=== PATIENT | female | born 1965 | race Caucasian/White ===

== ENCOUNTER → 2016-06-04 | Outpatient (REF) | payer OTHER ==
[2016-06-04 18:08] LABS: BASO # 0.1 K/mm3 (0.0-0.2); BASO % 0.8 % (0.0-1.0); EOS # 0.4 K/mm3 (0.0-0.50); EOS % 5.2 % (0.0-3.0); LARGE UNSTAINED CELL # 0.1 K/mm3 (0.0-0.4); LARGE UNSTAINED CELL % 1.6 % (0.0-4.0); LYMPH % 28.6 % (24.0-44.0); MEAN CORPUSCULAR HEMOGLOBIN 28.3 pg (27.0-33.0); MEAN CORPUSCULAR HGB CONC 32.1 g/dl (32.0-36.5); MEAN CORPUSCULAR VOLUME 88.2 fl (80.0-96.0); MONO # 0.3 K/mm3 (0.0-0.8); MONO % 4.5 % (0.0-5.0); NEUTROPHILS # 4.2 K/mm3 (1.8-7.7); NEUTROPHILS % 59.4 % (36.0-66.0); PLATELET COUNT, AUTOMATED 342 k/mm3 (150-450); RED CELL DISTRIBUTION WIDTH 12.7 % (11.5-14.5); WHITE BLOOD COUNT 7.1 K/mm3 (4.0-10.0)
[2016-06-04 18:09] LABS: VITAMIN B12 LEVEL 365 PG/ML
[2016-06-04 18:13] LABS: ALBUMIN 4.2 GM/DL (3.2-5.2); ALBUMIN/GLOBULIN RATIO 1.14 (1.00-1.93); ALKALINE PHOSPHATASE 83 U/L (45-117); ALT/SGPT 27 U/L (12-78); ANION GAP 9 MEQ/L (8-16); AST/SGOT 48 U/L (15-37); BLOOD UREA NITROGEN 9 MG/DL (7-18); CARBON DIOXIDE LEVEL 28 MEQ/L (21-32); CHLORIDE LEVEL 105 MEQ/L (98-107); CHOLESTEROL LEVEL 182 MG/DL (<200); CREATININE FOR GFR 0.74 MG/DL (0.55-1.02); FERRITIN 88 NG/ML (8-252); FREE T4 0.88 NG/DL (0.76-1.46); GLOMERULAR FILTRATION RATE > 60.0 (>51); GLUCOSE, FASTING 78 MG/DL (70-105); POTASSIUM SERUM 4.1 MEQ/L (3.5-5.1); SODIUM LEVEL 142 MEQ/L (136-145); TOTAL PROTEIN 7.9 GM/DL (6.4-8.2); TRIGLYCERIDES LEVEL 170 MG/DL (<150)
== END ==
LOC: M SFHCPLAZ 14:25
PROVIDERS: ATTEND Nurse Practitioner Family
DX: R05 Cough (principal); R53.83 Other fatigue; E03.9 Hypothyroidism, unspecified; E66.01 Morbid (severe) obesity due to excess calories
CPT/HCPCS: 36415; 80053; 80061; 82306; 82607; 82728; 82746; 84439; 84443; 85025; G0463

== ENCOUNTER → 2016-06-29 | Outpatient (CLI) | payer OTHER ==
--- NOTE | 2016-06-29 08:51 | REP ---
MAXILLOFACIAL CT WITHOUT CONTRAST: HISTORY: Osteosclerosis. Minimal mucosal thickening is present in the ethmoid, maxillary, left frontal and right sphenoid sinuses. A retention cyst or polyp is present in the right maxillary sinus. The remaining sinuses are clear. The ostiomeatal units are patent. The middle and inferior nasal turbinates are partially paradoxical. There is allie bullosa of the middle nasal turbinates. There is minimal deviation of the nasal septum to the right. A spur is present arising from the right side of the nasal septum. The cribriform plate, medial freitas of the orbits and optic canals are intact. There is aeration of the right anterior clinoid process. The carotid canals form a segment of the posterolateral freitas of the sphenoid sinus. The sphenoid sinus septum inserts into the left internal carotid canal wall. There is flattening of the mandibular condyles with associated sclerosis. Calcified densities are present adjacent to the left mandibular condyle. IMPRESSION: 1. Sinus mucosal thickening as described above. 2. 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 Signed by Theodore Mcintosh MD 06/29/2016 09:09 A
== END ==
LOC: M RAD 08:11
PROVIDERS: ATTEND Nurse Practitioner Family
DX: M26.69 Other specified disorders of temporomandibular joint (principal)

== ENCOUNTER 2016-07-22 14:11 | Emergency (ER) | payer OTHER ==
[~2016-07-22] VITALS: Ht 160 cm; Wt 107.0 kg
[2016-07-22] MEDS ORDERED: VITAMIN PO (14:30)
[2016-07-22] MEDS: ASPIRIN 81 MG CHEW TABLET PO ONE ×2 (14:30→14:43)
[2016-07-22] MEDS ORDERED: LEVO100T5 PO (14:30)
[2016-07-22] MEDS ORDERED: ZYRT10CA PO (14:30)
[2016-07-22] MEDS ORDERED: DOXY100T (14:30)
[2016-07-22] MEDS ORDERED: ASPI81TA85 PO (14:30)
[2016-07-22 14:41] LABS: BASO # 0.1 K/mm3 (0.0-0.2); BASO % 0.7 % (0.0-1.0); EOS # 0.3 K/mm3 (0.0-0.50); EOS % 3.5 % (0.0-3.0); LARGE UNSTAINED CELL # 0.1 K/mm3 (0.0-0.4); LARGE UNSTAINED CELL % 1.4 % (0.0-4.0); LYMPH # 2.4 K/mm3 (1.5-4.5); LYMPH % 30.2 % (24.0-44.0); MEAN CORPUSCULAR HEMOGLOBIN 28.3 pg (27.0-33.0); MEAN CORPUSCULAR HGB CONC 33.2 g/dl (32.0-36.5); MEAN CORPUSCULAR VOLUME 85.1 fl (80.0-96.0); MONO # 0.3 K/mm3 (0.0-0.8); MONO % 3.4 % (0.0-5.0); NEUTROPHILS # 4.7 K/mm3 (1.8-7.7); NEUTROPHILS % 60.7 % (36.0-66.0); PLATELET COUNT, AUTOMATED 345 k/mm3 (150-450); RED CELL DISTRIBUTION WIDTH 12.7 % (11.5-14.5); WHITE BLOOD COUNT 7.8 K/mm3 (4.0-10.0)
[2016-07-22 14:52] LABS: INR 0.94
[2016-07-22 15:12] LABS: ANION GAP 9 MEQ/L (8-16); BLOOD UREA NITROGEN 11 MG/DL (7-18); CALCIUM LEVEL 8.6 MG/DL (8.5-10.1); CARBON DIOXIDE LEVEL 27 MEQ/L (21-32); CHLORIDE LEVEL 105 MEQ/L (98-107); CREATININE FOR GFR 0.76 MG/DL (0.55-1.02); GLOMERULAR FILTRATION RATE > 60.0 (>51); GLUCOSE, FASTING 99 MG/DL (70-105); POTASSIUM SERUM 3.6 MEQ/L (3.5-5.1); SODIUM LEVEL 141 MEQ/L (136-145)
--- NOTE | 2016-07-22 15:12 | REP ---
PORTABLE CHEST X-RAY: Single view. HISTORY: Chest pain. COMPARISON STUDY: May 06, 2016. FINDINGS: A 2.4 cm oval-shaped, well-circumscribed noncalcified lung mass is seen in the right inferior perihilar region. Previously, this was reported as measuring 2.9 cm. No new nodule is seen. Pleural angles are sharp. Lung naylor are otherwise well inflated. Heart size is normal. Pulmonary vasculature is not increased. IMPRESSION: 2.4 cm right inferior perihilar lung mass. This appears radiographically smaller than it did on May 06, 2016. Uncertain etiology. Otherwise no active disease. No remote comparison radiographs are available. Consider chest CT. Signed by Andriy Cisneros MD 07/22/2016 06:19 P
[2016-07-22] MEDS ORDERED: ISOVUE-370 76% 100ML VIAL (Q9967) As Ordered ONE (15:16)
--- NOTE | 2016-07-22 15:58 | REP ---
CT pulmonary angiogram: With IV contrast. History: Question pulmonary embolism. Comparison studies: Comparison chest x-rays are from today as well as 05/06/2016. Contrast dose: 75 mL of Isovue [address] technique: Helical scanning is acquired and overlapping 1.5 mm and contiguous 3 mm axial images are reformatted. In addition, a 3-D work station is deployed to generate thick slab maximum intensity projection images in sagittal and coronal imaging projections. CT pulmonary angiographic findings: There is good opacification of the pulmonary arterial tree. There is no CT evidence of pulmonary embolism. Thoracic aorta is unremarkable on contrast enhanced CT. There is moderate diffuse fatty infiltration of the liver. There are clips in gallbladder fossa. No adrenal lesion is seen. The visualized upper abdominal structures are otherwise unremarkable. There is no evidence of hilar or mediastinal mass or adenopathy. A few normal-sized right hilar lymph nodes are seen. The study confirms the presence of a right lower lobe lung mass. This measures 2.5 x 2.0 x 1.9 cm. The lesion has a somewhat laminated texture. Maximal intensity projection reconstruction images suggest the possibility of a eccentric calcification but this is not confirmed on axial images. It is fairly well circumscribed. Its contour has a notch posteriorly. There are no adjacent draining veins or feeding arteries. No other pulmonary nodule is seen. No infiltrate or atelectasis is noted. No bony destructive lesion is appreciated. Impression: 1. No CT evidence of pulmonary embolus. 2. Moderate fatty infiltration of the liver. 3. 2.5 cm right lower lobe lung mass. Granuloma versus primary lung malignancy. If prior imaging studies exist these should be retrieved and compared. Failing this consideration could be given to PET/CT scanning or histologic sampling. Consider pulmonary medicine evaluation. Signed by Andriy Cisneros MD 07/22/2016 06:20 P
--- NOTE | 2016-07-22 17:35 | ECGEPIP ---
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
[2016-07-22 18:09] VITALS: BP 153/79
== END 2016-07-22 18:12 | disposition home or self-care (01) ==
LOC: M ED 16:00
DX: R07.9 Chest pain, unspecified (principal); R91.8 Other nonspecific abnormal finding of lung field; E66.9 Obesity, unspecified; E03.9 Hypothyroidism, unspecified; I65.22 Occlusion and stenosis of left carotid artery; Z88.1 Allergy status to other antibiotic agents; Z80.1 Family history of malignant neoplasm of trachea, bronchus and lung
CPT/HCPCS: 36415; 71010; 71275; 80048; 82550; 82553; 83880; 85025; 85610; 93005; 93041; 94760; 99285; Q9967

== ENCOUNTER → 2016-07-31 | Outpatient (CLI) | payer OTHER ==
[~2016-07-31] MED LIST: ASPI81TA85 PO; DOXY100T; LEVO100T5 PO; VITA50003 PO; VITAMIN PO; ZYRT10CA PO
--- NOTE | 2016-08-03 17:26 | REPMRS ---
Patient History The patient states she had a clinical breast exam in Patient had first child at age 33. Family history of colorectal cancer in mother. Digital Woman Screen Mammo: July 31, 2016 - Exam #: [id number] Bilateral CC and MLO view(s) were taken. Technologist: Dayana Malik, Technologist FINDINGS: There are scattered fibroglandular densities. There has been no change in the appearance of the mammogram from the prior study on 02/06/10. There is a mild amount of residual fibroglandular tissue which is fairly symmetric. There is no interval development of dominant mass, architectural distortion, or clustered microcalcification suggestive of malignancy. There are scattered, small, benign calcifications of doubtful clinical significance. No significant changes when compared with prior studies. ASSESSMENT: BI-RADS/ACR category 2 mammogram. Benign finding(s). Recommendation Routine screening mammogram in 1 year (for women over age 40). This mammogram was interpreted with the aid of an FDA-approved computer-aided dectection system. A. Negative x-ray reports should not delay biopsy if a dominant or clinically suspicious mass is present. B. Four to eight percent of cancers are not identified by mammography. C. Adenosis and dense breast may obscure an underlying neoplasm. Electronically Signed By: Magan Rodriguez MD 08/03/16 [id number]
== END ==
LOC: M WHC 14:50
PROVIDERS: ATTEND Nurse Practitioner Women's Health
DX: Z12.31 Encounter for screening mammogram for malignant neoplasm of breast (principal)
CPT/HCPCS: G0202; G0463

== ENCOUNTER → 2016-07-31 | Outpatient (REF) | payer OTHER | LOC: M SFHCWAGY 15:58 | PROVIDERS: ATTEND Nurse Practitioner Women's Health | DX: Z12.4 Encounter for screening for malignant neoplasm of cervix (principal) ==

== ENCOUNTER → 2016-08-05 | Outpatient (REF) | payer OTHER ==
[2016-08-05 13:35] LABS: FREE T4 1.16 NG/DL (0.76-1.46)
== END ==
LOC: M SFHCPLAZ 11:05
PROVIDERS: ATTEND Nurse Practitioner Family
DX: E03.9 Hypothyroidism, unspecified (principal)

== ENCOUNTER → 2016-08-05 | Outpatient (REF) | payer OTHER | LOC: M LABDRAWP 14:04 | PROVIDERS: ATTEND Internal Medicine Pulmonary Disease | DX: E03.9 Hypothyroidism, unspecified (principal); R91.8 Other nonspecific abnormal finding of lung field ==

== ENCOUNTER → 2016-08-10 | Day surgery (SDC) | payer OTHER ==
[~2016-08-10] VITALS: Ht 160 cm; Wt 107.0 kg
[~2016-08-10] MED LIST changes: +ACETAMINOPHEN TAB 650MG DOSE (2X325MG) PO ONE; +GLYCOPYRROLATE INJ 0.2 MG/ML 2 ML VIAL As Ordered ONE; +LIDOCAINE 2% INJ 100 MG/5 ML SDV (FOR ANES.) As Ordered ONE; +LIDOCAINE VISCOUS 2% SOLN 15ML UDC As Ordered ONE; +LR 1,000 ML IV SCH; +METOCLOPRAMIDE INJ 10MG/2ML VIAL (J2765) IV PRN; +MIDAZOLAM INJ 2 MG/2 ML VIAL (J2250) As Ordered ONE; +NEOSTIGMINE 1MG/ML 5 ML SYRINGE (J2710) As Ordered ONE; +ONDANSETRON 4MG/2ML VIAL (J2405) As Ordered ONE; +ONDANSETRON 4MG/2ML VIAL (J2405) IV PRN; +PERCOCET 5MG/325MG TAB PO PRN; +PROPOFOL 200 MG/20 ML VIAL As Ordered ONE; +ROCURONIUM BROMIDE 50 MG/5 ML VIAL As Ordered ONE; +fentaNYL 100 MCG/2 ML INJECTION (J3010) As Ordered ONE; +fentaNYL 100 MCG/2 ML INJECTION (J3010) IV PRN
--- NOTE | 2016-08-10 10:25 | RO ---
DATE OF PROCEDURE: 08/10/2016 PREOPERATIVE DIAGNOSES: Right lower lobe lesion. Abnormal chest CT POSTOPERATIVE DIAGNOSES: Right lower lobe lesion. Abnormal chest CT. PROCEDURE Bronchoscopy with electromagnetic navigation fine-needle aspiration. SURGEON: Dr. Benigno Trejo. QUALITY ASSURANCE QA LAB TECHNICIAN: None ANESTHESIA: General. FINDINGS: Normal airways. ESTIMATED BLOOD LOSS: 5 to 10 mL. COMPARISON: No observed complications. FINDINGS: Normal airways. SPECIMENS OBTAINED: 1. Fine-needle aspiration (FNA) right lower lobe. 2. Forceps biopsies right lower lobe. 3. Micro brush right lower lobe. 4. Bronchoalveolar lavage (BAL) right lower lobe. DESCRIPTION OF PROCEDURE: After informed consent was reviewed with the patient in the preoperative area, she was brought back to OR #8. Time-out was performed with two patient identifiers identifying correct site, correct procedure. The patient was intubated with general anesthesia with an 8.0 endotracheal tube. After adequate anesthesia, the case was handed over to mo. Again a time-out was performed with two patient identifiers identifying correct site, correct procedure. The 1T180 bronchoscope was then inserted into the endotracheal tube. Airways were then examined. Trachea was midline. Brenna was sharp. Right and left mainstem bronchus was normal. RV 1 through 10 was normal. LB 1 through 10 was normal except for some minimal bleeding from the scope. After a normal airway inspection the LG guide was placed. Automatic registration was performed without difficulty. I then navigated to the right lower lobe lesion in the lateral segment. This was easily navigated to. Position was confirmed with fluoroscopy. After confirmation of placement the lg guide was removed. Fine needle aspiration was performed times four, transbronchial biopsies times eight and a micro brush. This was followed by bronchoalveolar lavage. After all samples were taken, the sheath was removed. Hemostasis was assured prior to removing the bronchoscope. There were no observed complications. The patient is in recovery. Postprocedure chest x-ray is pending. [facility]
--- NOTE | 2016-08-10 11:00 | REP ---
PORTABLE CHEST: AP portable view of the chest is performed and compared to a prior study of 07/22/2016. There is somewhat poor ventilation. There is no pneumothorax. Right lower lobe nodular opacity is again seen. There are bilateral discoid atelectatic changes. IMPRESSION: No pneumothorax. Right lower lobe nodular opacity. Signed by Chon Liao MD 08/10/2016 03:53 P
[2016-08-10 12:15] VITALS: BP 139/79
== END ==
LOC: M SDC 07:39
PROVIDERS: ATTEND Internal Medicine Pulmonary Disease
DX: R91.8 Other nonspecific abnormal finding of lung field (principal); R05 Cough; R06.83 Snoring; R91.1 Solitary pulmonary nodule; J32.9 Chronic sinusitis, unspecified; E03.9 Hypothyroidism, unspecified; M50.90 Cervical disc disorder, unspecified, unspecified cervical region; I34.9 Nonrheumatic mitral valve disorder, unspecified; D64.9 Anemia, unspecified; G47.9 Sleep disorder, unspecified; E66.9 Obesity, unspecified; Z86.14 Personal history of Methicillin resistant Staphylococcus aureus infection; Z80.1 Family history of malignant neoplasm of trachea, bronchus and lung; Z88.1 Allergy status to other antibiotic agents; Z79.899 Other long term (current) drug therapy
CPT/HCPCS: 31623; 31624; 31627; 31628; 31629; 71010; 76000; 87070; 87071; 87102; 87116; 87205; 87206; 88172; 88173; 88305; 88313; J2250; J2405; J2710; J3010

== ENCOUNTER → 2016-09-11 | Outpatient (CLI) | payer OTHER ==
[~2016-09-11] MED LIST changes: -ACETAMINOPHEN TAB 650MG DOSE (2X325MG) PO ONE; -GLYCOPYRROLATE INJ 0.2 MG/ML 2 ML VIAL As Ordered ONE; -LIDOCAINE 2% INJ 100 MG/5 ML SDV (FOR ANES.) As Ordered ONE; -LIDOCAINE VISCOUS 2% SOLN 15ML UDC As Ordered ONE; -LR 1,000 ML IV SCH; -METOCLOPRAMIDE INJ 10MG/2ML VIAL (J2765) IV PRN; -MIDAZOLAM INJ 2 MG/2 ML VIAL (J2250) As Ordered ONE; -NEOSTIGMINE 1MG/ML 5 ML SYRINGE (J2710) As Ordered ONE; -ONDANSETRON 4MG/2ML VIAL (J2405) As Ordered ONE; -ONDANSETRON 4MG/2ML VIAL (J2405) IV PRN; -PERCOCET 5MG/325MG TAB PO PRN; -PROPOFOL 200 MG/20 ML VIAL As Ordered ONE; -ROCURONIUM BROMIDE 50 MG/5 ML VIAL As Ordered ONE; -fentaNYL 100 MCG/2 ML INJECTION (J3010) As Ordered ONE; -fentaNYL 100 MCG/2 ML INJECTION (J3010) IV PRN
--- NOTE | 2016-09-12 09:29 | REP ---
MAXILLOFACIAL CT WITHOUT CONTRAST: HISTORY: Chronic maxillary sinusitis. COMPARISON: 06/29/2016. Moderate mucosal thickening is present in the ethmoid and maxillary sinuses. This has progressed compared to the previous study. Minimal mucosal thickening is present in the left sphenoid sinus. The remaining sinuses are clear. A retention cyst or polyp is present in the right maxillary sinus. Mucosal thickening involves the ostiomeatal units. The middle and inferior nasal turbinates are partially paradoxical. There is allie bullosa of the middle nasal turbinates. There is minimal deviation of the nasal septum to the right. A spur is present arising from the right side of the nasal septum. The cribriform plate, medial freitas of the orbits and optic canals are intact. There is aeration of the right anterior clinoid process. The carotid canals form a segment of the posterolateral freitas of the sphenoid sinus. The sphenoid sinus septum inserts into the left internal carotid canal wall. There is flattening of the mandibular condyles with associated sclerosis. Calcifications are present adjacent to the left mandibular condyle. IMPRESSION: 1. Sinus mucosal thickening as described above. The mucosal thickening has progressed compared to the previous study. 2. There is degenerative change in the temporal mandibular joints. Unreviewed
== END ==
LOC: M RAD 15:23
PROVIDERS: ATTEND Specialist
DX: J32.0 Chronic maxillary sinusitis (principal)

== ENCOUNTER → 2016-09-15 | Outpatient (REF) | payer OTHER ==
[2016-09-15 12:45] LABS: FREE T4 1.06 NG/DL (0.76-1.46)
== END ==
LOC: M SFHCPLAZ 10:00
PROVIDERS: ATTEND Nurse Practitioner Family
DX: E03.9 Hypothyroidism, unspecified (principal); E55.9 Vitamin D deficiency, unspecified

== ENCOUNTER → 2016-10-08 | Outpatient (CLI) | payer OTHER ==
[~2016-10-08] VITALS: Ht 160 cm; Wt 107.0 kg
[~2016-10-08] MED LIST changes: +CLAR10CA3 PO; +LIDOCAINE 2% INJ 100 MG/5 ML SDV (FOR ANES.) As Ordered ONE; +MULT1TAB10 PO; +NS 1,000 ML IV ONE; +PROPOFOL 200 MG/20 ML VIAL As Ordered ONE
--- NOTE | 2016-10-08 13:49 | ROOR ---
Patient Name: Shannan Welch Procedure Date: 10/08/2016 1:33 PM Date of : 1965 Age: 51 Room: [facility] Gender: Female Note Status: Finalized Procedure: Upper GI endoscopy Indications: Functional Dyspepsia, Dysphagia, "gastric polyp" Providers: Juan Luis SHARIF MD Referring MD: Loulou Larry NP Requesting Provider: Medicines: Monitored Anesthesia Care Complications: No immediate complications. Procedure: Pre-Anesthesia Assessment: - The heart rate, respiratory rate, oxygen saturations, blood pressure, adequacy of pulmonary ventilation, and response to care were monitored throughout the procedure. The Endoscope was introduced through the mouth, and advanced to the second part of duodenum. The upper GI endoscopy was accomplished without difficulty. The patient tolerated the procedure well. Findings: The examined esophagus was normal. The scope was withdrawn. Dilation was performed with a Smith dilator with no resistance at 54 Fr. The dilation site was examined and showed no change. This was biopsied with a cold forceps for evaluation of eosinophilic esophagitis. Small Hiatal Hernia. The entire examined stomach was normal. The examined duodenum was normal. Impression: - Normal esophagus. Dilated. Biopsied. - Small Hiatal Hernia. - Normal stomach.(I see no polypoid lesion described by patient--mucosa is normal) - Normal examined duodenum. Recommendation: - Observe patient's clinical course. - I anticipate no further need for intervention. Juan Luis Sharif MD Juan Luis SHARIF MD 10/08/2016 1:49:27 PM This report has been signed electronically. Number of Addenda: 0 Note Initiated On: 10/08/2016 1:33 PM Estimated Blood Loss: Estimated blood loss: none.
--- NOTE | 2016-10-08 14:01 | ROOR ---
Patient Name: Shannan Welch Procedure Date: 10/08/2016 1:34 PM Date of : 1965 Age: 51 Room: [facility] Gender: Female Note Status: Finalized Procedure: Colonoscopy Indications: Surveillance: Personal history of adenomatous polyps on last colonoscopy 3 years ago, Last colonoscopy: 2012 Providers: Juan Luis SHARIF MD Referring MD: Loulou Larry NP Requesting Provider: Medicines: Monitored Anesthesia Care Complications: No immediate complications. Procedure: Pre-Anesthesia Assessment: - The heart rate, respiratory rate, oxygen saturations, blood pressure, adequacy of pulmonary ventilation, and response to care were monitored throughout the procedure. The Colonoscope was introduced through the anus and advanced to the cecum, identified by appendiceal orifice and ileocecal valve. The colonoscopy was performed without difficulty. The patient tolerated the procedure well. The quality of the bowel preparation was good. Findings: The perianal and digital rectal examinations were normal. A 4 mm polyp was found in the sigmoid colon. The polyp was sessile. The polyp was removed with a cold snare. Resection and retrieval were complete. The exam was otherwise without abnormality on direct and retroflexion views. Impression: - One 4 mm polyp in the sigmoid colon, removed with a cold snare. Resected and retrieved. - The examination was otherwise normal on direct and retroflexion views. Recommendation: - Telephone endoscopist for pathology results in 2 weeks. - Repeat colonoscopy in 5 years for surveillance based on personal history of previous adenomatous polyps. Juan Luis Sharif MD Juan Luis SHARIF MD 10/08/2016 2:01:16 PM This report has been signed electronically. Number of Addenda: 0 Note Initiated On: 10/08/2016 1:34 PM Estimated Blood Loss: Estimated blood loss: none.
[2016-10-08 14:15] VITALS: BP 133/90
== END ==
LOC: M OPP 11:49
PROVIDERS: ATTEND Internal Medicine Gastroenterology
DX: Z12.11 Encounter for screening for malignant neoplasm of colon (principal); Z86.010 Personal history of colon polyps; Z80.0 Family history of malignant neoplasm of digestive organs; D12.5 Benign neoplasm of sigmoid colon; R13.10 Dysphagia, unspecified; K31.7 Polyp of stomach and duodenum; K30 Functional dyspepsia; K44.9 Diaphragmatic hernia without obstruction or gangrene; D64.9 Anemia, unspecified; E03.9 Hypothyroidism, unspecified; I34.1 Nonrheumatic mitral (valve) prolapse; Z79.899 Other long term (current) drug therapy; Z88.1 Allergy status to other antibiotic agents

== ENCOUNTER → 2016-10-13 | Outpatient (CLI) | payer OTHER ==
[~2016-10-13] MED LIST changes: +E-Z-GAS II EFFERVESCENT PACKET (SODIUM BICARB./CITRIC ACID/SIMETHICONE) As Ordered ONE; +E-Z-HD 98% w/w 340GM SUSP BTL As Ordered ONE; +E-Z-PAQUE 96% w/w SUSP 176GM BTL As Ordered ONE; -LIDOCAINE 2% INJ 100 MG/5 ML SDV (FOR ANES.) As Ordered ONE; -NS 1,000 ML IV ONE; -PROPOFOL 200 MG/20 ML VIAL As Ordered ONE
--- NOTE | 2016-10-13 17:33 | REP ---
Esophagram The procedure was performed under the direct supervision of Dr. Cisneros. The images were reviewed with Dr. Cisneros. A single view PA chest x-ray is submitted as a scientific specialist film. The superior mediastinal structures are midline. The heart size is within normal limits. There is a nodular opacity in the right lower lobe which is seen on a previous chest x-ray performed on 08/10/[address] of the chest performed on 07/22/2016. Liquid barium and gas producing granules were given in the erect position as well as liquid barium in the prone oblique positions in order to perform a double contrast esophagram examination. The oral and pharyngeal stages of deglutition are unremarkable. Esophageal transport is prompt and efficient and there is no esophagitis, stricture, mucosal ring or hiatal hernia. Gastroesophageal reflux is not demonstrated on this examination. Impression: There is a nodular opacity in the right lower lobe which is seen on a previous chest x-ray performed on 08/10/[address] of the chest performed on 07/22/2016. Otherwise unremarkable double contrast esophagram examination. 1 minute and 16 seconds of fluoro time was utilized for this procedure. Reviewed by SAMANTHA Koo 10/13/2016 03:19 PSigned by Andriy Cisneros MD 10/13/2016 05:24 P
== END ==
LOC: M RAD 09:52
PROVIDERS: ATTEND Physician Assistant Medical
DX: R91.8 Other nonspecific abnormal finding of lung field (principal)

== ENCOUNTER → 2017-01-14 | Outpatient (REF) | payer OTHER ==
[~2017-01-14] MED LIST changes: -E-Z-GAS II EFFERVESCENT PACKET (SODIUM BICARB./CITRIC ACID/SIMETHICONE) As Ordered ONE; -E-Z-HD 98% w/w 340GM SUSP BTL As Ordered ONE; -E-Z-PAQUE 96% w/w SUSP 176GM BTL As Ordered ONE; +VITA1CAP40 PO; -VITA50003 PO
[2017-01-14 14:05] LABS: FREE T4 0.92 NG/DL (0.76-1.46)
== END ==
LOC: M SFHCPLAZ 09:24
PROVIDERS: ATTEND Nurse Practitioner Family
DX: E03.9 Hypothyroidism, unspecified (principal); E55.9 Vitamin D deficiency, unspecified

== ENCOUNTER → 2017-02-11 | Outpatient (REF) | payer OTHER | LOC: M SFHCWAGY 13:39 | PROVIDERS: ATTEND Nurse Practitioner Women's Health | DX: N89.8 Other specified noninflammatory disorders of vagina (principal); N76.0 Acute vaginitis ==

== ENCOUNTER 2017-05-05 06:47 | Day surgery (SDC) | payer OTHER ==
[~2017-05-05] VITALS: Ht 160 cm; Wt 106.6 kg
[~2017-05-05 06:47] MED LIST changes: +ACYC400T PO
[2017-05-05] MEDS ORDERED: LR 1,000 ML IV ONE (07:00)
[2017-05-05] MEDS ORDERED: OXYMETAZOLINE NASAL SPRAY (AFRIN) As Ordered ONE (07:10)
[2017-05-05] MEDS ORDERED: EPINEPHrine INJ 1 MG/ML 1ML AMP As Ordered ONE (07:10)
[2017-05-05] MEDS ORDERED: LIDOCAINE W/EPINEPHRINE 1% 20ML VIAL As Ordered ONE ×2 (07:10→07:54)
[2017-05-05] MEDS ORDERED: LIDOCAINE 1% MDV 20ML VIAL SQ PRN (07:15)
[2017-05-05] MEDS ORDERED: ceFAZolin 2 GM/D5W 50 ML IV BAG (J0690 PER 500MG) As Ordered ONE (07:20)
[2017-05-05] MEDS ORDERED: DOXY-278 PO (07:30)
[2017-05-05] MEDS ORDERED: VICO5TAB16 PO ×2 (07:30→07:38)
[2017-05-05] MEDS: METHYLENE BLUE 0.5% (5MG/ML) 10 ML AMP (PROVAYBLUE)(Q9968 PER 1MG) As Ordered ONE ×2 (07:52→08:38)
[2017-05-05] MEDS ORDERED: ROCURONIUM BROMIDE 50 MG/5 ML VIAL As Ordered ONE (08:07)
[2017-05-05] MEDS ORDERED: dexameTHASONE 4 MG/ML 1ML VIAL (J1100) As Ordered ONE (08:07)
[2017-05-05] MEDS ORDERED: ONDANSETRON 4MG/2ML VIAL (J2405) As Ordered ONE (08:07)
[2017-05-05] MEDS ORDERED: PROPOFOL 200 MG/20 ML VIAL As Ordered ONE (08:07)
[2017-05-05] MEDS ORDERED: fentaNYL 250 MCG/5 ML INJECTION (J3010) As Ordered ONE (08:07)
[2017-05-05] MEDS ORDERED: MIDAZOLAM INJ 2 MG/2 ML VIAL (J2250) As Ordered ONE (08:07)
[2017-05-05] MEDS ORDERED: LIDOCAINE 2% INJ 100 MG/5 ML SDV (FOR ANES.) As Ordered ONE (08:07)
[2017-05-05] MEDS ORDERED: ePHEDrine SULFATE 25 MG/5 ML(5MG/ML) SYRINGE As Ordered ONE (08:13)
[2017-05-05] MEDS ORDERED: PHENYLephrine HCL 500 MCG/5 ML (100MCG/ML) SYRINGE (J2370) As Ordered ONE (08:13)
[2017-05-05] MEDS ORDERED: NEOSTIGMINE 10 MG/10 ML VIAL (J2710) As Ordered ONE (08:15)
[2017-05-05] MEDS ORDERED: GLYCOPYRROLATE INJ 0.2 MG/ML 2 ML VIAL As Ordered ONE (08:15)
[2017-05-05] MEDS ORDERED: EPINEPHrine 1MG/ML INJ 30ML MD-VIAL As Ordered ONE (08:38)
[2017-05-05] MEDS ORDERED: METOCLOPRAMIDE INJ 10MG/2ML VIAL (J2765) As Ordered ONE (09:27)
[2017-05-05] MEDS ORDERED: METOCLOPRAMIDE INJ 10MG/2ML VIAL (J2765) IV PRN (09:45)
[2017-05-05] MEDS ORDERED: LR 1,000 ML IV SCH (09:45)
[2017-05-05] MEDS ORDERED: IBUPROFEN 800 MG TAB PO PRN (09:45)
[2017-05-05] MEDS ORDERED: PERCOCET 5MG/325MG TAB PO PRN (09:45)
[2017-05-05] MEDS ORDERED: NORCO, ANEXSIA 5/325MG TABLET (HYDROcodone/ACETAMINOPHEN) PO PRN (09:45)
[2017-05-05] MEDS ORDERED: ONDANSETRON 4MG/2ML VIAL (J2405) IV PRN (09:45)
[2017-05-05] MEDS: fentaNYL 100 MCG/2 ML INJECTION (J3010) IV PRN ×2 (09:50→10:00)
[2017-05-05 12:48] VITALS: BP 179/95
--- NOTE | 2017-05-06 19:50 | RO ---
DATE OF PROCEDURE: 05/05/2017 PREPROCEDURE DIAGNOSES: 1. Chronic sinusitis. 2. Deviated septum. POSTPROCEDURE DIAGNOSIS: 1. Chronic sinusitis. 2. Deviated septum. OPERATIVE PROCEDURE: Bilateral total endoscopic ethmoidectomy and maxillary antrostomy. Septoplasty. SURGEON: Manior Wen MD FORCER MAKER: ANESTHESIA: INDICATION: A 51-year-old presents with a long history of nasal obstruction, recurrent sinusitis and pulmonary complications related to sinus disease. DESCRIPTION OF PROCEDURE: Satisfactory general endotracheal anesthesia administrated, pharyngeal pack placed, nose prepared for surgery by placing cotton-soaked pledgets with Afrin solution to the nasal cavity bilaterally, then 1% Xylocaine with 1:1000,00 epinephrine was used to inject the nasal septum. A Edward incision was made on the left side of the nose. A mucoperichondrial flap and envelope was created on the left side of the nasal septum and carried down to the junction of the bony and cartilaginous septum. This was then with an elevator, and an envelope was then created on the right side of the septum. A Ashwin scissors was used to make a cut high in the perpendicular plate in the midportion of the vomer, and a central segment of the bony septum was resected. Next, with the round knife on the Raulito elevator, a strip of cartilage was resected from the floor of the nose, mobilizing the quadrilateral cartilage and creating a swinging door. Then, a central segment of cartilaginous septum was resected, preserving a 1 cm dorsal and caudal strut. Double-action rongeur was used to take down deflected portions of the perpendicular plate, as well. Finally, the maxillary crest spur was taken down after elevating mucoperiosteum off both sides of it with a chisel. A segment of the resected cartilage was morselized and placed back into the septal envelope. The incision was closed using an interrupted #5-0 chromic suture. Then, a #4-0 plain suture was placed in a [id number] fashion through the two leaves of mucoperichondrium to appose them. The majority of the septal deflection was in the posterior vomer bone which created a large right angle spur posteriorly. This was resected by removing mucoperiosteum on each side of the vomer and then using the chisel below to separate it from the floor of the nose and scissors above to release it. The spur was removed in its entirety. The mucoperiosteum in this area was quite attenuated as a result of the sharp spur. Reconstruction of the septum was done by placing some segments of cartilage and resect it back in the septal envelope and then a #5-0 chromic suture used to close the incision and a #4-0 plain suture was placed in the usual fashion in a back and forth fashion through the septal envelope to oppose both sides. Next endoscopic sinus surgery was begun by placing cotton soaked pledgets with Afrin solution in the nasal cavity. The 0-degree telescope was used for most of the surgery. The microdebrider was the primary instrument. 1% Xylocaine with 1:100,000 epinephrine was injected into the left lateral nasal wall. First the uncinate process was taken down with the microdebrider. The ethmoid bulla was visualized and then entered. The ethmoid bulla was then resected with the microdebrider until the lamina papyracea was visualized. Then the ground lamella was perforated medially and inferiorly. The posterior ethmoid cells were entered. No mucopus was seen in this area, but hyperplastic mucosa was encountered and suctioned. Working posterior to the lamella bone as well as hyperplastic mucosa was resected following the anterior skull base as well as lamina papyracea. The natural maxillary sinus ostium was identified behind the remnant of the uncinate process which was enlarged by using the microdebrider to take down any other areas of the uncinate process which had not been resected and then upbiting and side-biting forceps used to enlarge the maxillary antrostomy. Inspection of the contents of the maxillary sinus showed no mucopus. There was some hyperplastic mucosa seen inferiorly, but the sinus ostia was widely open. Adrenaline pledgets were placed in the sinus while an identical procedure was performed on the right side. Again no mucopus found on dissection with mostly hyperplastic mucosa as well as chronic inflammation. Once the procedure was completed on the right side, adrenaline pledgets were placed and these were removed, a Propel insert was placed into each middle meatus to support the middle turbinate. The area was then provided with packing by using Sinu-Foam to fill the center part of the Propel system. This provided adequate hemostasis. Completing this the pharyngeal pack which was placed in the beginning of the surgery was removed and throat suctioned. The patient was awakened and extubated and sent to the recovery room in satisfactory condition. The patient will be discharged home on Vicodin for pain. She will have doxycycline 100 mg twice a day and she will be seen back in the office in three days.
== END 2017-05-05 13:13 | disposition home or self-care (01) ==
LOC: M SDC 06:47
PROVIDERS: ATTEND Specialist
DX: J32.9 Chronic sinusitis, unspecified (principal); J34.2 Deviated nasal septum; E03.9 Hypothyroidism, unspecified; R91.1 Solitary pulmonary nodule; I34.1 Nonrheumatic mitral (valve) prolapse; R07.9 Chest pain, unspecified; K63.5 Polyp of colon; R06.83 Snoring; G47.9 Sleep disorder, unspecified; Z88.1 Allergy status to other antibiotic agents; Z79.899 Other long term (current) drug therapy
CPT/HCPCS: 30520; 31255; 31256; 88300; 88305; C2625; J0690; J1100; J2250; J2370; J2405; J2710; J2765; J3010; Q9968

== ENCOUNTER → 2017-06-01 | Outpatient (CLI) | payer OTHER | LOC: M SLEEP HO 10:59 | DX: G47.30 Sleep apnea, unspecified (principal) ==

== ENCOUNTER → 2017-07-26 | Outpatient (CLI) | payer OTHER | LOC: M WHC 10:38 | DX: Z12.31 Encounter for screening mammogram for malignant neoplasm of breast (principal) ==

== ENCOUNTER → 2017-07-26 | Outpatient (REF) | payer OTHER | LOC: M SFHCWAGY 11:12 | DX: Z12.4 Encounter for screening for malignant neoplasm of cervix (principal) ==